=== PATIENT | male | born 1980 | race Caucasian/White ===

== ENCOUNTER 2017-03-29 20:41 | Emergency (ER) | payer OTHER ==
[2017-03-29 22:41] VITALS: BP 129/74
== END 2017-03-29 22:41 | disposition home or self-care (01) ==
LOC: ED 20:41
DX: S86.911A Strain of unspecified muscle(s) and tendon(s) at lower leg level, right leg, initial encounter (principal); V43.52XA Car driver injured in collision with other type car in traffic accident, initial encounter; Y93.89 Activity, other specified; Y92.411 Interstate highway as the place of occurrence of the external cause; Y99.8 Other external cause status